=== PATIENT | female | born 1980 | race Caucasian/White ===

== ENCOUNTER 2021-05-24 09:49 | Emergency (ER) | payer BC, SELFPAY ==
[2021-05-24 09:51] VITALS: BP 189/110; PULSE 85; RESP 18; TEMP 36.5; O2SAT 96; BMI 45.3
[2021-05-24 10:25] VITALS: BP 150/90; PULSE 85; RESP 18; TEMP 36.5; O2SAT 96; BMI 45.1
--- NOTE | 2021-05-24 11:03 | HMH.EDUTC ---
[facility] [place] Disposition Clinical Impression: Muscle spasm Disposition: Home, Self-Care Condition on Discharge: Good Instructions: DI for Muscle Spasm, Cyclobenzaprine, Methylprednisolone, Etodolac Additional Instructions: *Etodolac rashel 6 hours with meal as needed for pain/inflammation *Remember you had a Toradol shot in the clinic today, which is similar to Etodolac do not start until tonight around 10pm *Not additional anti-inflammatory like Ibuprofen, motrin, aleve, advil with the above amount of Etodolac. You can still take Tylenol every 4 hours as needed if you need something else for pain *Ice 20 minutes every 2 hours for the first 48 hours after the initial injury followed by moist heat every 20 minutes 3-4 times a day to affected area *Muscle relaxer every 8 hours as needed for muscle spasms but remember, it WILL cause drowsiness You cannot take it and drive, operate machinery or care for small children. *Keep this area active, no movement leads to more stiffness, However take it easy and avoid heavy lifting pushing or pulling *Follow up with you family doctor if no improvement for further treatment Prescriptions: Etodolac 200 mg PO Q8HP PRN #20 cap PRN Reason: Moderate Pain Prescription Printed Cyclobenzaprine HCl [Flexeril 10mg tablet] 10 mg PO Q8HP PRN #15 tab PRN Reason: Muscle Spasm Prescription Printed methylPREDNISolone [Medrol 4mg tab] 4 mg PO DIRECTED #21 tab Prescription Printed Referrals: August Pascal MD [Primary Care Provider] - As needed Time of Disposition: 11:18 Medical Decision Making - Tru Inquiry Pt receiving controlled substance: No Tru was queried for this patient: No Vital Signs: 05/24/21 09:51 05/24/21 10:25 Temperature 97.7 F 97.7 F Temperature Source Oral Oral Pulse Rate [Left Radial] 85 85 Respiratory Rate 18 18 Blood Pressure [Left Arm] 189/110 H 150/90 H Blood Pressure Mean [Left Arm] 136 110 Blood Pressure Source [Left Arm] Automatic Cuff Automatic Cuff Blood Pressure Position [Left Arm] Sitting Sitting 02 Sat by Pulse Oximetry 96 96 Oxygen Delivery Method Room Air Room Air [facility] [place] HPI - General Stated complaint: right shoulder pain, no accident Time Seen by Provider: 05/24/21 11:03 Mode of Arrival: Ambulatory Source of Information: Patient Limitations: No Limitations Description of Symptoms (Recalled from Triage Doc. by RN): PATIENT C/O RUE PAIN THAT STARTS IN NECK AND RADIATES DOWN TO ELBOW X 3 WEEKS. NO KNOWN INJURY. HEENT Symptoms (Recalled from RN notes): No Resp Symptoms (Recalled from RN notes): No Skin Symptoms (Recalled from RN notes): No MS Symptoms (Recalled from RN notes): Yes Functional Status (Recalled from RN notes): WNL - History of Present Illness Provider Complaint: Patient states that she pulled a muscle in her right shoulder about 3 weeks ago when she was pulling, tugging and lifting totes States that she thought it would go away but it hasnt States that she feels like she is having spasms and pain still and now she is having pain that shoots from her shoulder blade area to her right shoulder and elbow - Related Data Previous Rx's Medication Instructions Recorded Cyclobenzaprine HCl [Flexeril 10mg 10 mg PO Q8HP PRN #15 tab 05/24/21 tablet] Etodolac 200 mg PO Q8HP PRN #20 cap 05/24/21 methylPREDNISolone [Medrol 4mg 4 mg PO DIRECTED #21 tab 05/24/21 tab] Allergies Allergy/AdvReac Type Severity Reaction Status Date / Time INGREDIENT: NO KNOWN - NO Allergy Unknown Uncoded 05/31/17 14:38 KNOWN DRUG ALLERGY - Worker's Comp Is this a Worker's Comp case?: No [facility] History - Hepatitis A Screen Drug use history?: No High risk sexual behaviors?: No History of sexually transmitted infection?: No Currently employed?: No Childcare worker?: No Do you have indoor plumbing?: Yes Do you have electricity?: Yes Attestation statement:: This patient has been screened for Hepatitis A risk factors. I have nelson
[2021-05-24 11:30] VITALS: BP 150/90; PULSE 85; RESP 18; TEMP 36.5; O2SAT 96
== END 2021-05-24 11:35 | disposition home or self-care (01) ==
LOC: ER 10:03 → UTC 10:04
PROVIDERS: Emergency Provider Nurse Practitioner; PCP Internal Medicine Adolescent Medicine
DX: M62.838 Other muscle spasm (principal); M25.511 Pain in right shoulder
CPT/HCPCS: 96372; 99202; G0463

== ENCOUNTER → 2021-05-25 13:17 | Outpatient (CLI) | payer BC, SELFPAY ==
--- NOTE | 2021-05-25 13:21 | XR_ITS ---
PROCEDURE: XR SHOULDER RT MIN 2V CLINICAL INDICATION: PARESTHESIA OF RT UPPER ETREMITY, NECK PAIN COMPARISON: No exams were available for comparison FINDINGS: No fracture or dislocation. No lytic or blastic change. There is normal mineralization. Minimal hypertrophic changes are present the distal aspect of the clavicle inferiorly. The glenohumeral joint has an unremarkable appearance. Other findings:None. IMPRESSION: Minimal hypertrophic changes distal clavicle otherwise negative Dictated by: Tato Hernandez MD 05/25/2021 13:54 Tato Hernandez MD in [place] 05/25/2021 13:54
--- NOTE | 2021-05-25 13:21 | XR_ITS ---
PROCEDURE: XR CERVICAL SPINE 5V CLINICAL INDICATION: PARESTHESIA OF RT UPPER ETREMITY, NECK PAIN COMPARISON: No exams were available for comparison FINDINGS: No fracture or dislocation. No lytic or blastic change. There is normal mineralization. There is normal alignment. There is slight reversal of the cervical lordosis at the C5-C6 level. There is degenerative disc disease at C5-C6. There is minimal cervical curvature convex right. No cervical rib. Other findings:None. IMPRESSION: Degenerative disc disease C5-C6 with slight reversal of lordosis Dictated by: Tato Hernandez MD 05/25/2021 13:51 Tato Hernandez MD in [place] 05/25/2021 13:51
== END ==
PROVIDERS: PCP Internal Medicine Adolescent Medicine; Visit Provider Nurse Practitioner Family
DX: R20.2 Paresthesia of skin (principal); M54.2 Cervicalgia; M25.511 Pain in right shoulder
CPT/HCPCS: 72050; 73030

== ENCOUNTER → 2021-06-01 10:11 | Outpatient (CLI) | payer BC, SELFPAY ==
--- NOTE | 2021-06-01 10:14 | MR_ITS ---
PROCEDURE: MR CERVICAL SPINE WO CON CLINICAL INDICATION: CERVICAL RADICULOPATHY COMPARISON: CR XR CERVICAL SPINE 5V from 05/25/2021 TECHNIQUE: Standard multiplanar multiecho sequences are performed without contrast. 3-D MIP and myelographic images are also rendered and reviewed FINDINGS: There is straightening of the cervical lordosis which could be due to patient positioning or muscle spasm. Craniocervical junction has an unremarkable appearance. C2-C3: Mild left foraminal narrowing from uncovertebral hypertrophy. C3-C4: Unremarkable. C4-C5: Unremarkable. C5-C6: Considerable motion artifact obscures fine detail on the axial T2 weighted images. There is a bulging disc with a small to medium-sized broad-based right paracentral disc protrusion/disc osteophyte complex and a small left paracentral disc osteophyte complex with resultant severe bilateral lateral recess narrowing right greater than left and canal stenosis at 8 mm. Bilateral foraminal narrowing. C6-C7: Unremarkable. C7-T1: Unremarkable. IMPRESSION: There is a bulging disc at C6-C7 with a small to medium-sized broad-based right paracentral disc protrusion/disc osteophyte complex and a small left paracentral disc protrusion/disc osteophyte complex with resultant severe bilateral lateral recess narrowing right greater than left and canal stenosis at 8 mm. Mild left-sided foraminal narrowing at C2-C3. Considerable motion artifact obscuring fine detail Dictated by: Tato Hernandez MD 06/02/2021 14:45 Tato Hernandez MD in [place] 06/02/2021 14:45
== END ==
PROVIDERS: PCP Internal Medicine Adolescent Medicine; Visit Provider Nurse Practitioner Family
DX: M54.12 Radiculopathy, cervical region (principal); R29.898 Other symptoms and signs involving the musculoskeletal system
CPT/HCPCS: 72141; 76376

== ENCOUNTER 2022-01-03 11:18 | Emergency (ER) | payer BC, SELFPAY ==
[2022-01-03 11:25] VITALS: BP 135/92; PULSE 79; RESP 19; TEMP 36.4; O2SAT 97; BMI 45.1
--- NOTE | 2022-01-03 11:46 | HMH.EDUTC ---
[facility] [place] Disposition Clinical Impression: Dizziness Disposition: Home, Self-Care Condition on Discharge: Good Instructions: Vertigo, DI for Vertigo, Meclizine, How to Perform [place] Vertigo Exercises Additional Instructions: Take medications as prescribed Follow up with your Family Doctor if symptoms continue and do not improve Return if needed Straight to ER if any life threatening symptoms Prescriptions: Meclizine HCl [Antivert 25mg tablet] 25 mg PO Q8HP PRN #15 tab PRN Reason: Dizziness Transmission Status: Received by [id number] methylPREDNISolone [Medrol 4mg tab] 4 mg PO DIRECTED #21 tab Transmission Status: Received by [id number] Ondansetron [Zofran 4mg ODT] 4 mg PO TIDP PRN #10 tab PRN Reason: Nausea Transmission Status: Received by [id number] Referrals: August Pascal MD [Primary Care Provider] - As needed Forms: Work/School Release Medical Decision Making - Tru Inquiry Pt receiving controlled substance: No Tru was queried for this patient: No Vital Signs: 01/03/22 11:25 Temperature 97.6 F Temperature Source Oral Pulse Rate [Right Brachial] 79 Respiratory Rate 19 Blood Pressure [Right Arm] 135/92 H Blood Pressure Mean [Right Arm] 106 Blood Pressure Source [Right Arm] Automatic Cuff Blood Pressure Position [Right Arm] Sitting 02 Sat by Pulse Oximetry 97 Oxygen Delivery Method Room Air Orders (Tests/Meds): ED MEDICATIONS Discontinued Medications Generic Name Dose Route Start Last Admin Trade Name Freq PRN Reason Stop Dose Admin Meclizine HCl 25 mg 01/03/22 11:48 01/03/22 11:53 Meclizine 25mg Tablet PO 01/03/22 11:49 25 mg ONCE ONE Administration Medical Decision Narrative: Denies last period a week ago Discussed transfer to the ED for further work up and testing and patient declined wanted to try medication first and would return to the ED if symptoms worsen Dneies headache, denies blurry vision or any vision changes and states that as long as she is sitting still dizziness improves and get sick at her stomach when everything is spinning Patient reports that dizziness in improved after medication Still denies headache at this time [facility] [place] HPI - General Stated complaint: dizzy Time Seen by Provider: 01/03/22 11:47 Mode of Arrival: Ambulatory Source of Information: Patient Limitations: No Limitations Description of Symptoms (Recalled from Triage Doc. by RN): PATIENT C/O HEADACHE, VOMITING, AND FEELS LIKE EVERYTHING IS SPINNING SINCE YESTERDAY HEENT Symptoms (Recalled from RN notes): Yes Resp Symptoms (Recalled from RN notes): No Skin Symptoms (Recalled from RN notes): No MS Symptoms (Recalled from RN notes): No Functional Status (Recalled from RN notes): WNL - History of Present Illness Provider Complaint: Patient states that yesterday she woke up and felt like everything was spinning when she got out of bed States that it continued all day and made her feel sick at her stomach and she vomited several times States that she has had a little headache on and off at times over the last month but nothing serious and not having one now but still having dizziness when she moves quickly or bends over so she came in to get checked out - Related Data Previous Rx's Medication Instructions Recorded Cyclobenzaprine HCl [Flexeril 10mg 10 mg PO Q8HP PRN #15 tab 05/24/21 tablet] Etodolac 200 mg PO Q8HP PRN #20 cap 05/24/21 methylPREDNISolone [Medrol 4mg 4 mg PO DIRECTED #21 tab 05/24/21 tab] Meclizine HCl [Antivert 25mg 25 mg PO Q8HP PRN #15 tab 01/03/22 tablet] Ondansetron [Zofran 4mg ODT] 4 mg PO TIDP PRN #10 tab 01/03/22 methylPREDNISolone [Medrol 4mg 4 mg PO DIRECTED #21 tab 01/03/22 tab] Allergies Allergy/AdvReac Type Severity Reaction Status Date / Time No Known Allergies Allergy Verified 01/03/22 11:45 - Worker's Comp Is this a Worker's Comp case?: No [facility] History -
[2022-01-03 12:20] VITALS: BP 135/92; PULSE 79; RESP 19; TEMP 36.4; O2SAT 97
== END 2022-01-03 12:24 | disposition home or self-care (01) ==
PROVIDERS: Emergency Provider Nurse Practitioner; PCP Internal Medicine Adolescent Medicine
DX: R42 Dizziness and giddiness (principal); R51.9 Headache, unspecified; R11.10 Vomiting, unspecified
CPT/HCPCS: 99212; G0463